=== PATIENT | female | born 1945 | race Caucasian/White ===

== ENCOUNTER 2019-06-02 14:08 | Emergency (ER) | payer OTHER ==
[~2019-06-02] VITALS: Ht 165.1 cm; Wt 54.4 kg
[2019-06-02 15:38] VITALS: BP 151/80
== END 2019-06-02 18:45 | disposition home or self-care (01) ==
LOC: ER 14:08
DX: R42 Dizziness and giddiness (principal)
CPT/HCPCS: 70450; 93005